=== PATIENT | female | born 1990 | race Caucasian/White ===

== ENCOUNTER 2019-07-17 11:00 | Outpatient (REF) | payer MEDICAID, SELFPAY | END 2019-07-17 11:20 | LOC: NCHCN 11:00 | PROVIDERS: PCP Physician Assistant Medical; Visit Provider Physician Assistant Medical | DX: N39.0 Urinary tract infection, site not specified (principal) | CPT/HCPCS: 87077; 87086; 87186 ==

== ENCOUNTER 2019-12-18 08:53 | Emergency (ER) | payer MEDICAID, SELFPAY ==
[2019-12-18 09:00] VITALS: BP 128/77; PULSE 92; RESP 18; TEMP 36.8; O2SAT 98
--- NOTE | 2019-12-18 09:15 | ED.GENADUL_ITS ---
Discharge Plan Disposition Patient Disposition: HOME Condition: Stable Discharge Details Chief Complaint: Sorethroat Clinical Impression: Acute streptococcal pharyngitis Primary Care Provider: Elizabeth Anguiano ED Provider: Africa Borjas Home Meds and New Rx's Prescriptions: New clindamycin HCl 300 mg capsule 300 mg PO TID 10 Days Qty: 30 RF: 0 Continued Mirena 1 EACH intrauterine device 1 ea Intrauterine DIRECTED RF: 0 ibuprofen 600 MG tablet 600 mg PO Q6H PRN PRNQty: 30 RF: 1 acetaminophen [Mapap Extra Strength] 500 MG tablet 500 mg PO Q6H PRN PRNQty: 30 RF: 1 ibuprofen 800 MG tablet 800 mg PO Q8H PRN (Reason: Pain) Qty: 15 RF: 0 Discharge Instructions Instructions: Pharyngitis (ED) Additional Instructions: Drink plenty of fluids and get plenty of rest. Take the antibiotics until finished. Alternate tylenol and motrin as needed and directed for pain. Follow-up with your primary care doctor in 1 week. Return to the emergency department with any worsening or new concerning symptoms. Discharge Data Discharge Physician: Africa Borjas Medical Decision Making 29-year-old female presents with sore throat since last night. She is afebrile and appears nontoxic. She has significant tonsillar edema, erythema, exudates but uvula midline without evidence of peritonsillar abscess. Tonsils not touching. No submandibular swelling, drooling or trismus. No obvious lymphadenopathy. Rapid strep positive. Patient has a history of allergy to sulfa and amoxicillin of which she is unsure of the reaction. Urine test negative. She was given a dose of Decadron p.o. to help with tonsillar edema and pain control. Prescription for clindamycin given. Advised to follow up with the primary care doctor for re-evaluation. Usual and customary return precautions given prior to discharge. Medical Records Medical records reviewed: Yes I reviewed the patient's medical records. HPI General Mode of arrival: ambulatory . Date/Time Provider Initiated Documentation: 12/18/19 09:10 . Limitations to Documentation: no limitations . Information obtained by: patient . HPI Narrative: Patient is a 29-year-old female presents the ED with a complaint of sore throat since last night. She states she has been working from home for the last several months. She states her kids return to daycare this week. She denies any known fever, ear pain, cough. Related Data Home Medications Medication Instructions Recorded Confirmed Saritha 1 ea INTRAUTERINE DIRECTED 09/13/15 12/18/19 acetaminophen [Mapap Extra 500 mg PO Q6H PRN PRN #30 tab 10/14/15 12/18/19 Strength] ibuprofen 600 mg PO Q6H PRN PRN #30 tablet 10/14/15 12/18/19 ibuprofen 800 mg PO Q8H PRN #15 tablet 02/18/17 12/18/19 clindamycin HCl 300 mg PO TID 10 Days #30 cap 12/18/19 Previous Rx's Medication Instructions Recorded acetaminophen [Mapap Extra 500 mg PO Q6H PRN PRN #30 tab 10/14/15 Strength] ibuprofen 600 mg PO Q6H PRN PRN #30 tablet 10/14/15 ibuprofen 800 mg PO Q8H PRN #15 tablet 02/18/17 clindamycin HCl 300 mg PO TID 10 Days #30 cap 12/18/19 Allergies Allergy/AdvReac Type Severity Reaction Status Date / Time Sulfa (Sulfonamide Allergy Severe HIVES, Unverified 12/18/19 09:05 Antibiotics) SWELLING, ITCHING amoxicillin Allergy Unknown ? WAS TOLD Unverified 12/18/19 09:05 @ PCP'S OFFICE General Stated Complaint: Sorethroat MERE: 4 Review of Systems All systems reviewed & are unremarkable except as noted in HPI and below Constitutional Constitutional: Reports as per HPI, Denies chills and Denies fever(s) Eyes Eyes: Denies blurry vision ENT Ears, Nose, Mouth, and Throat: Denies dizziness, Reports sore throat and Denies throat swelling Cardiovascular Cardiovascular: Denies chest pain and Denies dyspnea Respiratory Respiratory: Denies cough and Denies dyspnea Gastrointestinal Gastrointestinal: Denies abdominal pain, Denies diarrhea and Denies vomiting Genitourinary Genitourinary: Denies hematuria and Denies dysuria Musculoskeletal Musculoskeletal: Denies back pain and Denies numbness Integumentary/Breasts Skin/Breast: Denies lesions and Denies rash Neurologic Neurologic: Denies dizziness, Denies localized weakness and Denies numbness Allergic/Immunologic Allergic/Immunologic: Denies throat swelling [facility] Medical History (Updated 12/18/19 @ 09:31 by Africa Borjas DO) Elevated blood pressure Iron deficiency anemia Plantar fasciitis Surgical History (Updated 12/18/19 @ 09:25 by Africa Borjas DO) H/O wisdom tooth extraction (Acute) Hx of cholecystectomy (Chronic) Social History Smoking/Tobacco Use Status: Never Alcohol Intake: current Alcohol Intake frequency: a few times a month Drug use: Never Substance use type: does not use Do you feel safe at home: Yes Do you feel safe in your relationship?: Yes Exam Const General: cooperative, healthy appearing and no acute distress HENMT Head: normal to inspection Ears: hearing grossly normal bilaterally, external ears normal and TM's normal bilaterally General nose exam: external nose normal Mouth: oral mucosae normal Throat: uvula midline, no peritonsillar masses and posterior oropharynx abnormal edema, erythema and exudates Eyes General: appearance normal, both eyes and all related structures Neck Neck: normal visual inspection, no lymphadenopathy, no meningeal signs, trachea midline, supple and No submandibular swelling Resp Effort & Inspection: normal respiratory effort and able to speak in complete sentences Cardio Rate: regular rate Skin General skin exam: no rashes or lesions noted Neuro General: patient alert, patient awake and patient oriented x3 Motor: muscle tone normal throughout Extrem General: normal to inspection and full ROM Psych Appearance: grossly normal Affect: normal affect Course Vital Signs Vital signs: Vital Signs Temperature 98.2 F 12/18/19 09:00 Pulse 92 H 12/18/19 09:00 Respiratory Rate 18 12/18/19 09:00 Blood Pressure 128/77 12/18/19 09:00 Pulse Oximetry 98 12/18/19 09:00 Temperature 98.2 F 12/18/19 09:00 Temperature Source Oral 12/18/19 09:00 Pulse 92 H 12/18/19 09:00 Respiratory Rate 18 12/18/19 09:00 Respiratory Effort Non-Labored 12/18/19 09:03 Blood Pressure 128/77 12/18/19 09:00 Blood Pressure Position Sitting 12/18/19 09:00 Pulse Oximetry 98 12/18/19 09:00 Oxygen Delivery Method Room Air 12/18/19 09:00 Oxygen Flow Rate 0 12/18/19 09:00 Lab/Test Results Lab/Test Results: POC Strep Test-ARIANA(Rapid) Start: 12/18/19 09:13 Freq: Status: Active Protocol: Document 12/18/19 09:13 MJ (Rec: 12/18/19 09:13 [id number]) Strep test-ARIANA(Rapid)-POC POC-Strep test-ARIANA (Rapid) Positive POC-Strep test-ARIANA (Rapid) Positive
[2019-12-18] MEDS: Dexamethasone 10 MG/ML VIAL PO (09:34)
== END 2019-12-18 09:45 | disposition home or self-care (01) ==
PROVIDERS: Emergency Provider Physician Assistant; PCP Physician Assistant Medical
DX: J02.0 Streptococcal pharyngitis (principal)
CPT/HCPCS: 87880; 99283; J1100

== ENCOUNTER 2020-03-01 21:19 | Emergency (ER) | payer OTHER, MEDICAID, SELFPAY ==
[2020-03-01 21:24] VITALS: BP 108/85; PULSE 83; RESP 16; TEMP 36.5; O2SAT 98
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
== END 2020-03-01 22:15 | disposition home or self-care (01) ==
PROVIDERS: Emergency Provider Emergency Medicine; PCP Physician Assistant Medical
DX: S60.221A Contusion of right hand, initial encounter (principal); Y04.2XXA Assault by strike against or bumped into by another person, initial encounter; Y99.0 Civilian activity done for income or pay
CPT/HCPCS: 99283; 73130

== ENCOUNTER 2020-03-07 10:08 | Emergency (ER) | payer OTHER, MEDICAID, SELFPAY ==
[2020-03-07 10:13] VITALS: BP 153/86; PULSE 85; RESP 16; TEMP 36.5; O2SAT 96
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
== END 2020-03-07 11:00 | disposition home or self-care (01) ==
PROVIDERS: Emergency Provider Physician Assistant; PCP Physician Assistant Medical
DX: S60.221A Contusion of right hand, initial encounter (principal); Y04.2XXA Assault by strike against or bumped into by another person, initial encounter
CPT/HCPCS: 29130; 99283

== ENCOUNTER 2020-04-28 08:08 | Emergency (ER) | payer MEDICAID, SELFPAY ==
[2020-04-28 08:17] VITALS: BP 161/109; PULSE 87; RESP 16; TEMP 36.5; O2SAT 98
[2020-04-28 08:26] LABS: Bilirubin Negative (Negative); Blood Large (Negative); Clarity Clear (Clear); Glucose Negative (Negative); Ketones Negative (Negative); Leukocyte Esterase Moderate (Negative); Nitrite Negative (Negative); Specific Gravity >= 1.030 (1.005-1.025); Urobilinogen 0.2 EU/dL (Up TO 0.2); pH 5.5 (5-8)
--- NOTE | 2020-04-28 08:26 | ED.GENADUL_ITS ---
Discharge Plan Disposition Patient Disposition: HOME Condition: Stable Discharge Details Clinical Impression: Hematuria, UTI (urinary tract infection) Primary Care Provider: Elizabeth Anguiano ED Provider: Roman Kwan Home Meds and New Rx's Prescriptions: New nitrofurantoin monohyd/m-cryst [Macrobid] 100 mg capsule 100 mg PO BID Qty: 14 RF: 0 Continued Mirena 1 EACH intrauterine device 1 ea Intrauterine DIRECTED RF: 0 ibuprofen 600 MG tablet 600 mg PO Q6H PRN PRNQty: 30 RF: 1 acetaminophen [Mapap Extra Strength] 500 MG tablet 500 mg PO Q6H PRN PRNQty: 30 RF: 1 ibuprofen 800 MG tablet 800 mg PO Q8H PRN (Reason: Pain) Qty: 15 RF: 0 Discharge Instructions Instructions: Urinary Tract Infection in Women (ED), Hematuria (ED) Additional Instructions: As we discussed your symptoms are certainly consistent with an urinary tract infection but your urinalysis does show some contamination and is difficult to say with certainty that you truly have a urinary tract infection. Given your time constraints, we discussed options. We will at this time treat you presumptively for a urinary tract infection with the understanding that further work-up here in the ER such as laboratory values and CT imaging if needed was offered but at this time declined. Drink plenty of fluids, take [id number] Azo as directed. Macrobid as directed. Please watch for new or worsening symptoms and return to the ER for any concerns. Lastly, I do recommend reaching out your primary care provider later today or tomorrow for prompt outpatient reevaluation. Medical Decision Making 29-year-old female reports right flank pain hematuria, urinary frequency that began yesterday associate with mild nausea. 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 She is agreeable to obtaining a urine sample now and waiting for the results but does not want blood work or imaging. Clinically this very well could be a urinary tract infection. Clinically less likely a renal stone or pyelonephritis. She has no McBurney point tenderness, fever, vomiting, diarrhea, constipation, vaginal bleeding or discharge. Patient does understand the limitations that her time constraints provides here in the ER. Urinalysis reveals large blood moderate leukoesterase 10-20 red cells 5-10 white cells. Many epithelial cells. Moderate bacteria. Negative Urinalysis does reveal contamination however in her current state of symptoms, concern for UTI we discussed options and she would like to treat for UTI. I do believe this to be reasonable plan. I did explain to her that if time was not an issue I would recommend that she give us another urine sample to attempt a more clean-catch. If that test was normal and this in fact is not a urinary tract infection and I would then recommend IV access, laboratory values and reassessment. Based upon those laboratory values she may need CT imaging. Patient acknowledges that she understands limitations of her visit today, will provide her a prescription for Macrobid, and she was encouraged to return to the ER for new or worsening symptoms. Otherwise she will contact her primary care provider for prompt outpatient reevaluation. Medical Records Medical records reviewed: Yes I reviewed the patient's medical records. Lab Data Lab results reviewed: Yes I reviewed the patient's lab results. Lab results narrative: Laboratory Tests Range/Units 04/28/20 08:15 Urine Color (Yellow) Yellow Urine Clarity (Clear) Clear Urine pH (5-8) 5.5 Ur Specific [place] (1.005-1.025) >= 1.030 H Urine Protein (Negative) mg/dL Negative Urine Ketones (Negative) mg/dL Negative Urine Blood (Negative) Large H Urine Nitrite (Negative) Negative Urine Bilirubin (Negative) Negative Urine Urobilinogen (Up TO 0.2) EU/dL 0.2 Ur Leukocyte Esterase (Negative) Moderate H Urine RBC (0-2) HPF 10-20 H Urine WBC (0-5) HPF 5-10 Ur Epithelial Cells (Negative) HPF Many Urine Crystals (Negative) HPF Negative Urine Bacteria (Negative) HPF Moderate Urine Casts (Negative) LPF Negative Urine Mucus (Negative) Negative Ur Culture Indicated? No/sq. contamination Urine Glucose (Negative) mg/dL Negative HPI General Mode of arrival: ambulatory . Date/Time Provider Initiated Documentation: 04/28/20 08:26 . Limitations to Documentation: no limitations . Information obtained by: patient . HPI Narrative: This is a 29-year-old female who has a past medical history that includes elevated blood pressure, iron deficiency anemia, she reports a kidney infection, and is status post cholecystectomy. She does have a Mirena in place. She reports yesterday she developed right flank-back discomfort, nothing really made it worse or better. Subsequently she has developed mild nausea, urinary frequency and hematuria. She denies fever, chest pain, shortness of breath, vomiting, anterior abdominal pain, vaginal bleeding or discharge. Patient believes that she likely has a urinary tract infection or kidney infection, feels similar to her previous episode. Patient requests that she drop her urinalysis off now and we call her with her results and any potential prescription as she has an appointment to go to. I did encourage her to wait for her urine to come back here in the ER. She denies any other illness or recent trauma. Patient took [id number] medication yesterday with minimal relief. Related Data Home Medications Medication Instructions Recorded Confirmed Mirena 1 ea INTRAUTERINE DIRECTED 09/13/15 04/28/20 acetaminophen [Mapap Extra 500 mg PO Q6H PRN PRN #30 tab 10/14/15 04/28/20 Strength] ibuprofen 600 mg PO Q6H PRN PRN #30 tablet 10/14/15 04/28/20 ibuprofen 800 mg PO Q8H PRN #15 tablet 02/18/17 04/28/20 nitrofurantoin monohyd/m-cryst 100 mg PO BID #14 cap 04/28/20 [Macrobid] Previous Rx's Medication Instructions Recorded acetaminophen [Mapap Extra 500 mg PO Q6H PRN PRN #30 tab 10/14/15 Strength] ibuprofen 600 mg PO Q6H PRN PRN #30 tablet 10/14/15 ibuprofen 800 mg PO Q8H PRN #15 tablet 02/18/17 nitrofurantoin monohyd/m-cryst 100 mg PO BID #14 cap 04/28/20 [Macrobid] Allergies Allergy/AdvReac Type Severity Reaction Status Date / Time Sulfa (Sulfonamide Allergy Severe HIVES, Unverified 04/28/20 08:22 Antibiotics) SWELLING, ITCHING amoxicillin Allergy Unknown ? WAS TOLD Unverified 04/28/20 08:22 @ PCP'S OFFICE General Stated Complaint: FlankPain MERE: 3 Review of Systems Constitutional Constitutional: Denies fever(s) Cardiovascular Cardiovascular: Denies chest pain and Denies dyspnea Respiratory Respiratory: Denies cough and Denies dyspnea Gastrointestinal Gastrointestinal: Reports abdominal pain (Right flank), Reports nausea and Denies vomiting Genitourinary Genitourinary: Denies abnormal vaginal bleeding, Reports hematuria, Reports urinary urgency and Denies vaginal discharge Musculoskeletal Musculoskeletal: Reports back pain Integumentary/Breasts Skin/Breast: Denies rash [facility] Medical History Elevated blood pressure Iron deficiency anemia Plantar fasciitis Surgical History H/O wisdom tooth extraction Hx of cholecystectomy Social History Smoking/Tobacco Use Status: Never Smoking risk assessment performed?: Yes Alcohol Intake: current Alcohol Intake frequency: a few times a month Drug use: Never Substance use type: does not use Do you feel safe at home: Yes Do you feel safe in your relationship?: Yes Exam Const General: cooperative, healthy appearing, comfortable and no acute distress Orientation: alert and awake HENMT Head: normal to inspection, normocephalic and atraumatic Eyes Conjunctivae: conjunctivae normal Sclera: sclerae normal Neck Neck: normal visual inspection, full ROM, trachea midline and supple Resp Effort & Inspection: normal respiratory effort and able to speak in complete sentences Auscultation: clear to auscultation bilaterally Cardio Rate: regular rate Rhythm: regular rhythm GI Inspection: normal to inspection and obesity Palpation: soft, not firm, no guarding and tender (Mild right flank to deep palpation) with no rebound tenderness Back/Spine/Pelvis Back: no CVA tenderness and No back tenderness Skin General skin exam: no rashes or lesions noted Neuro General: patient alert, patient awake, moves all extremities and no focal motor deficits Cognition: normal cognition Gait: normal gait Sensory Exam: no sensory deficits noted Psych Appearance: grossly normal Mental Status: mental status grossly normal Course Vital Signs Vital signs: Vital Signs Temperature 36.5 C 04/28/20 08:17 Pulse 87 04/28/20 08:17 Respiratory Rate 16 04/28/20 08:17 Blood Pressure 161/109 H 04/28/20 08:17 Pulse Oximetry 98 04/28/20 08:17 Temperature 36.5 C 04/28/20 08:17 Pulse 87 04/28/20 08:17 Respiratory Rate 16 04/28/20 08:17 Respiratory Effort 04/28/20 08:17 Blood Pressure 161/109 H 04/28/20 08:17 Blood Pressure Position Sitting 04/28/20 08:17 Pulse Oximetry 98 04/28/20 08:17 Pain Level 6 04/28/20 08:17
[2020-04-28 08:41] LABS: Bacteria Moderate HPF (Negative); Casts Negative LPF (Negative); Crystals Negative HPF (Negative); Epithelial Cells Many HPF (Negative); Mucus Negative (Negative)
[2020-04-28 08:42] LABS: C & S Indicated? No/Sq. Contamination
== END 2020-04-28 08:52 | disposition home or self-care (01) ==
PROVIDERS: Emergency Provider Physician Assistant; PCP Physician Assistant Medical
DX: N39.0 Urinary tract infection, site not specified (principal); R31.9 Hematuria, unspecified; R10.11 Right upper quadrant pain; R11.0 Nausea; Z53.29 Procedure and treatment not carried out because of patient's decision for other reasons
CPT/HCPCS: 81025; 99283; 81003; 81015

== ENCOUNTER 2020-11-15 08:05 | Emergency (ER) | payer MEDICAID, SELFPAY ==
[2020-11-15 08:08] VITALS: PULSE 88; RESP 16; TEMP 36.5; O2SAT 98
--- NOTE | 2020-11-15 08:09 | W.ED.GENAD ---
Discharge Plan Disposition Patient Disposition: HOME Condition: Stable Discharge Details Clinical Impression: Allergic reaction Primary Care Provider: Elizabeth Anguiano ED Provider: Africa Borjas Home Meds and New Rx's Prescriptions: New prednisone 20 mg tablet See Rx Instructions .ROUTE .COMPLEX Qty: 12 RF: 0 Continued Mirena 1 EACH intrauterine device 1 ea Intrauterine DIRECTED RF: 0 acetaminophen [Mapap Extra Strength] 500 MG tablet 500 mg PO Q6H PRN PRNQty: 30 RF: 1 loratadine [Claritin] 10 mg Tablet 10 mg PO DAILY PRNRF: 0 Discharge Instructions Instructions: General Allergic Reaction (ED) Additional Instructions: It seems most likely your allergic reaction is due to the eyelid extensions. Avoid eye make-up until symptoms resolved. Your prescription has been sent electronically to your pharmacy. Call the pharmacy to make sure your prescription is ready before pickup. Take the prescription as directed. You can continue taking the Claritin and antihistamine eyedrops as needed and directed for itching. You can apply the erythromycin ointment 1-2 times daily to your eyelids for the next couple days. This is an antibiotic ointment. Follow-up with [facility] in the next week. Return immediately to the emergency department if you develop any worsening or new concerning symptoms. Referrals: [facility] [Outside] Discharge Data Discharge Physician: Africa Borjas Medical Decision Making 29-year-old female presents with eyelid pruritus and edema after having eyelid extensions applied. Admits to similar reaction 2 weeks ago and then a more pronounced reaction after they were reapplied 2 days ago. She removed all the extensions herself this morning. Symptoms are somewhat improved. She has edema and erythema to her upper eyelids greater than her lower eyelids but no obvious evidence of periorbital or orbital cellulitis. She has no yellow crusting or discharge. EOMI. PERRLA. Patient denies any eye pain and does not feel that she needs fluorescein staining to rule out corneal abrasion. Tetanus up-to-date 2014. Urine test negative. Discussed with patient that it appears she is most likely having a delayed hypersensitivity reaction to the eyelid extensions. Will treat with oral steroids. We will also give erythromycin ointment to help with erythema and irritation at the lid edge and for lubrication. She is advised that she can continue her antihistamine eyedrops and Claritin as needed. Advised to hold off on any eye make-up until symptoms resolved. Advised to [facility] with [facility] for reevaluation. Usual and customary return precautions given prior to discharge. Medical Records Medical records reviewed: Yes I reviewed the patient's medical records. HPI General Mode of arrival: ambulatory. Date/Time Provider Initiated Documentation: 11/15/20 08:08. Limitations to Documentation: no limitations. Information obtained by: patient. HPI Narrative: Patient is a 29-year-old female presents with itching and swelling to her bilateral eyelids after she had eyelid extensions placed. Patient states she has been having eyelid extensions applied to her eyes over the past 6 months. She states 2 weeks ago 1 day after the the extension were replaced, she noted bilateral eyelid swelling and itching. She states she also had some nasal congestion and throat irritation so she thought this was seasonal allergies after weed whacking so she took Claritin and use antihistamine eyedrops and the symptoms somewhat improved. She states she had the eyelid extensions replaced 2 days ago and awoke this morning with severe eyelid swelling and itching. She states she was able to take all of the eyelid extensions off this morning with using an oral face wash. She states the symptoms have somewhat improved since removing them but still has some swelling and itching. She denies any foreign body to her eye or eye pain. She denies any yellow crusting or discharge. She denies any difficulty breathing. Related Data Home Medications Medication Instructions Recorded Confirmed Mirena 1 ea INTRAUTERINE DIRECTED 09/13/15 11/15/20 acetaminophen [Mapap Extra 500 mg PO Q6H PRN PRN #30 tab 10/14/15 11/15/20 Strength] loratadine [Claritin] 10 mg PO DAILY PRN 11/15/20 11/15/20 prednisone See Rx Instructions .ROUTE 11/15/20 .COMPLEX #12 tab Previous Rx's Medication Instructions Recorded acetaminophen [Mapap Extra 500 mg PO Q6H PRN PRN #30 tab 10/14/15 Strength] prednisone See Rx Instructions .ROUTE 11/15/20 .COMPLEX #12 tab Allergies Allergy/AdvReac Type Severity Reaction Status Date / Time Sulfa (Sulfonamide Allergy Severe HIVES, Unverified 11/15/20 08:17 Antibiotics) SWELLING, ITCHING amoxicillin Allergy Unknown ? WAS TOLD Unverified 11/15/20 08:17 @ PCP'S OFFICE General MERE: 3 Review of Systems All systems reviewed & are unremarkable except as noted in HPI and below Constitutional Constitutional: Reports as per HPI, Denies chills and Denies fever(s) Eyes Eyes: Denies blurry vision, Reports irritation and Reports itchy eyes ENT Ears, Nose, Mouth, and Throat: Denies dizziness, Denies sore throat and Denies throat swelling Cardiovascular Cardiovascular: Denies chest pain and Denies dyspnea Respiratory Respiratory: Denies cough and Denies dyspnea Gastrointestinal Gastrointestinal: Denies abdominal pain, Denies diarrhea and Denies vomiting Genitourinary Genitourinary: Denies hematuria and Denies dysuria Musculoskeletal Musculoskeletal: Denies back pain and Denies numbness Integumentary/Breasts Skin/Breast: Denies lesions and Denies rash Neurologic Neurologic: Denies dizziness, Denies localized weakness and Denies numbness Allergic/Immunologic Allergic/Immunologic: Reports itchy eyes and Denies throat swelling PFSH Medical History Elevated blood pressure Iron deficiency anemia Plantar fasciitis Surgical History H/O wisdom tooth extraction Hx of cholecystectomy Social History Smoking/Tobacco Use Status: Never Smoking risk assessment performed?: Yes Alcohol Intake: current Alcohol Intake frequency: a few times a month Drug use: Never Substance use type: does not use Do you feel safe at home: Yes Do you feel safe in your relationship?: Yes Exam Const General: cooperative, healthy appearing and no acute distress [facility] Head: normal to inspection Ears: hearing grossly normal bilaterally, external ears normal and TM's normal bilaterally General nose exam: external nose normal Mouth: oral mucosae normal Throat: posterior oropharynx normal Eyes General: appearance normal, both eyes and all related structures Periorbital: periorbital findings normal Conjunctivae: conjunctivae normal Sclera: sclerae normal Pupils: PERRL EOM: EOM intact bilaterally Other: Moderate edema and erythema to upper eyelid, mild edema and erythema to lower eyelid. No yellow discharge, crusting, abrasions noted. No significant conjunctival abnormality. There is no obvious foreign body noted with bilateral eyelid eversion. Neck Neck: normal visual inspection, no lymphadenopathy, no meningeal signs, trachea midline, supple and No submandibular swelling Resp Effort & Inspection: normal respiratory effort and able to speak in complete sentences Cardio Rate: regular rate Skin General skin exam: no rashes or lesions noted Neuro General: patient alert, patient awake and patient oriented x3 Motor: muscle tone normal throughout Extrem General: normal to inspection and full ROM Psych Appearance: grossly normal Affect: normal affect
[2020-11-15] MEDS: predniSONE 20 MG TAB 60 MG PO (08:42)
[2020-11-15] MEDS: Erythromycin Ophth Oint 3.5 GM TUBE OU (08:42)
== END 2020-11-15 09:05 | disposition home or self-care (01) ==
PROVIDERS: Emergency Provider Physician Assistant; PCP Physician Assistant Medical
DX: T78.49XA Other allergy, initial encounter (principal); X58.XXXA Exposure to other specified factors, initial encounter
CPT/HCPCS: 81025; 99283; J7512

== ENCOUNTER 2023-07-19 14:00 | Outpatient (REF) | payer MEDICAID, SELFPAY ==
--- OUTSIDE RECORDS SUMMARY | 2023-07-19 14:04 | XMS_ITS | Patient Health Record ---
Author Name Unknown [facility] Address [address] [place] [address] Care Team Providers Care Plant Taxonomy Teacher Name Role Phone DAVID SHELDON PA-C Primary Care Provider Swathi vailable Sravanthi Whitney Unavailable [phone] REASON FOR REFERRAL No Information SOCIAL HISTORY Tobacco Use: Social History Observation Description Date Smoking Status WARNING: Information temporarily unavailable Sex Assigned At : Social History Observation Description Sex Assigned At Unknown SMOKING Question Answer Notes Are you a: nonsmoker PLAN OF TREATMENT No Information Insurance Providers Payer Name Payer Address Payer Phone Subscriber Number Group Number Insured Name Patient Relationship to Insured Coverage Start Date Coverage End Date [employer] Freddy RAMIREZ [id number] ANETA STEPHENSON Self - patient is the insured MEDICAID [place], [place] [id number] ANETA STEPHENSON Self - patient is the insured [place] [address] [id number] ANETA STEPHENSON Self - patient is the insured MEDICAL (GENERAL) HISTORY Surgical History Surgery Date(Month/Year)
[2023-07-19 20:31] LABS: Abs Immature Grans 0.09 10^3/uL (0.0-0.06); Absolute Basophil Count 0.04 10^3/uL (0.0-0.2); Absolute Eosinophil Count 0.08 10^3/uL (0.0-0.7); Absolute Lymphocyte Count 2.74 10^3/uL (1.2-3.4); Absolute Monocyte Count 0.69 10^3/uL (0.1-0.8); Absolute Neutrophil Count 6.95 10^3/uL (1.2-6.7); Basophils % 0.4; Eosinophils % 0.8; HCT 39.6 % (36.0-46.0); HGB 13.2 g/dL (11.2-15.7); Immature Grans % 0.8; Lymphocytes % 25.9; MCH 27.1 pg (27.0-33.0); MCHC 33.3 % (32.0-36.0); MCV 81 fL (80-95); MPV 9.6 fL (8.0-11.0); Monocytes % 6.5; Neutrophils % 65.6; Platelet Count 321 10^3/uL (130-400); RBC 4.87 10^6/uL (3.93-5.22); RDW 13.2 % (11.7-14.6); RDW-SD 38.6 fL; WBC 10.59 10^3/uL (4.4-10.8)
[2023-07-19 20:40] LABS: ALT 40 U/L (14-59); AST 23 U/L (15-37); Albumin 3.5 g/dL (3.4-5.0); Alkaline Phosphatase 81 U/L (46-116); Anion Gap 6.8 mmol/L (3-11); BUN 16 mg/dL (7-18); Bilirubin, Total 0.2 mg/dL (0.2-1.0); CO2 28.2 mmol/L (21.0-32.0); CREATININE 0.9 mg/dL (0.55-1.02); Calcium 9.3 mg/dL (8.5-10.1); Calculated LDL 123 mg/dL (<100); Chloride 104 mmol/L (98-107); Cholesterol 213 mg/dL (<200); Estimated GFR 86.57 (mL/min/1.73m2); Glucose 106 mg/dL (74-106); HDL Cholesterol 39 mg/dL (40-60); Hemoglobin A1C 5.9 % (<5.7); Potassium 4.2 mmol/L (3.5-5.1); Sodium 139 mmol/L (136-145); Total Protein 7.7 g/dL (6.4-8.2); Triglyceride 257 mg/dL (<150)
== END 2023-07-19 14:01 | disposition home or self-care (01) ==
LOC: NCHCN 14:00
PROVIDERS: PCP Physician Assistant Medical; Visit Provider Physician Assistant Medical
DX: I10 Essential (primary) hypertension (principal); K76.0 Fatty (change of) liver, not elsewhere classified; R73.09 Other abnormal glucose; E66.8 Other obesity
CPT/HCPCS: 80053; 80061; 83036; 85025

== ENCOUNTER 2024-04-09 11:25 | Emergency (ER) | payer OTHER, SELFPAY ==
[2024-04-09 11:29] VITALS: BP 120/75; PULSE 115; RESP 120; TEMP 36.6; O2SAT 94
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
--- OUTSIDE RECORDS SUMMARY | 2024-04-09 12:36 | XMS_ITS | Referral Summary ---
Author Organization [facility] Address [address] [place] [address] Care Team Providers Care Assistant Winemaker Name Role Phone Ariel Peña PA-C Primary Care Provider [phone] Social History Tobacco Use Types Packs/Day Years Used Date Smoking Tobacco: Never Assessed Interpersonal Safety Answer Date Record ed Physically Hurt Never 01/19/2020 Verbally Threaten Not on file 01/19/2020 Sex and Gender Information Value Date Recorded Sex Assigned at Not on file Gender Identity Not on file Sexual Orientation Not on file Plan of Treatment Not on file Care Teams Assistant Winemaker Relationship Specialty Start Date End Date Ariel Peña PA-C PCP - General 10/19/15
--- OUTSIDE RECORDS SUMMARY | 2024-04-09 12:36 | XMS_ITS | Clinical Summary ---
Author Organization [facility] Address [facility] [place] [address] Care Team Providers Care Human Resource Adviser Name Role Phone Elizabeth Anguiano Primary Care Provider [phone]- [phone] Allergies Active Allergy Reactions Criticality Noted Date Comments Amoxicillin 12/01/2020 Sulfa (Sulfonamide Antibiotics) 11/17 Medications Medication Sig Dispensed Refills Start Date End Date Status ibuprofen (Advil) 200 mg Tablet Take 200 mg by mouth every 6 hours as needed for Pain. Active acetaminophen (Tylenol) 500 mg Tablet Take 1,000 mg by mouth every 6 hours as needed for Pain. Active Active Problems Problem Noted Date Diagnosed Date Hx of cholecystectomy 12/22/2020 Allergic reaction 12/22/2020 Carpal tunnel syndrome on right 12/01/2020 Immunizations Name Administration Dates Next Due Tdap (Adacel, Boostrix) 03/03/2015 Social History Tobacco Use Types Packs/Day Years Used Date Smoking Tobacco: Never Smokeless Tobacco: Never Sex and Gender Information Value Date Recorded Sex Assigned at Not on file Gender Identity Not on file Sexual Orientation Not on file Plan of Treatment Health Maintenance Due Date Last Done Comments HIV screen 11/30/2007 Hepatitis C Screening 11/30/2007 Hepatitis B vaccine (0-59 yrs) (1) 2008 HPV test 11/30/2019 PAP Smear 11/30/2019 Covid-19 Vaccine ( - 2022-24 season) 2024 Influenza (Flu) vaccine (1 o f 1 - Influenza standard series) 02/18/2024 Tetanus/Diphtheria/Pertussis Vaccines (2 - Td or Tdap) 03/03/2025 03/03/2015 Care Teams Human Resource Adviser Relationship Specialty Start Date End Date Elizabeth Anguiano PA [address] [place] [address] PCP - General Family Medicine 11/25/20
--- OUTSIDE RECORDS SUMMARY | 2024-04-09 12:36 | XMS_ITS | Clinical Summary ---
Author Organization [facility] Address [address] [place] [address] Care Team Providers Care Stranding Supervisor Name Role Phone Ariel Peña PA-C Primary Care Provider [phone] Social History Tobacco Use Types Packs/Day Years Used Date Smoking Tobacco: Never Assessed Interpersonal Safety Answer Date Record ed Physically Hurt Never 01/19/2020 Verbally Threaten Not on file 01/19/2020 Sex and Gender Information Value Date Recorded Sex Assigned at Not on file Gender Identity Not on file Sexual Orientation Not on file Plan of Treatment Health Maintenance Due Date Last Done Comments Hepatitis C Screen 1989 Hepatitis B Vaccine (1 of 3 - 19+ 3-dose series) 11/29 COVID-19 Vaccine ( season) 2023 Care Teams Stranding Supervisor Relationship Specialty Start Date End Date Ariel Peña PA-C PCP - General 10/19/15
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
--- OUTSIDE RECORDS SUMMARY | 2024-04-09 12:36 | XMS_ITS | Encounter Summary ---
Author Organization [facility] [place] [address] Care Team Providers Care News Cameraman Name Role Phone Elizabeth Anguiano Primary Care Provider [phone]- [phone] Encounter Details Date Type Department Care Team (Late st Contact Info) Description 12/01/2020 Abstract Surgical Specialties at [facility] [address] [place] [address] Chetna Pagan[facility] Social History Tobacco Use Types Packs/Day Years Used Date Smoking Tobacco: Never Smokeless Tobacco: Never Sex and Gender Information Value Date Recorded Sex Assigned at Not on file Gender Identity Not on file Sexual Orientation Not on file documented as of this encounter Plan of Treatment Not on file documented as of this encounter Visit Diagnoses Not on filedocumented in this encounter Care Teams News Cameraman Relationship Specialty Start Date End Date Elizabeth Anguiano PA [address] [place] [address] PCP - General Family Medicine 11/25/20 documented as of this encounter
--- OUTSIDE RECORDS SUMMARY | 2024-04-09 12:36 | XMS_ITS | Encounter Summary ---
Author Organization [facility] Address [address] [place] [address] Care Team Providers Care Squeegee Tender Name Role Phone Unknown, Provider Primary Care Provider Encounter Details Date Type Department Care Team (Latest Contact Info) Description 10/14/2015 9:16 EDT - 10/14/2015 23:59 EDT Hospital Encounter [address] [address] Unknown, Provider, Discharge Disposition: Home or Self Care Social History Tobacco Use Types Packs/Day Years Used Date Smoking Tobacco: Never Assessed Sex and Gender Information Value Date Recorded Sex Assigned at Not on file Gender Identity Not on file Sexual Orientation Not on file documented as of this encounter Discharge Disposition Disposition Code Departure Means Destination Home or Self Group Home documented in this encounter Plan of Treatment Not on file documented as of this encounter Visit Diagnoses Not on filedocumented in this encounter Care Teams Squeegee Tender Relationship Specialty Start Date End Date Unknown, Provider, PCP - General 06/30/11 10/18/15 documented as of this encounter
--- OUTSIDE RECORDS SUMMARY | 2024-04-09 12:36 | XMS_ITS | Encounter Summary ---
Author Organization [facility] Address [address] [place] [address] Care Team Providers Care Digital Media Buyer Name Role Phone Ariel Peña PA-C Primary Care Provider [phone] Encounter Details Date Type Department Care Team (Latest Contact Info) Description 07/05/2017 19:41 EST - 07/05/2017 23:59 EST Hospital Encounter [address] [address] Unknown, Provider, Discharge Disposition: Home or Self [...] on filedocumented in this encounter Care Teams Digital Media Buyer Relationship Specialty Start Date End Date Ariel Peña PA-C PCP - General 10/19/15 documented as of this encounter
--- OUTSIDE RECORDS SUMMARY | 2024-04-09 12:36 | XMS_ITS | Encounter Summary ---
Author Organization [facility] Address [address] [place] [address] Care Team Providers Care Venue Coordinator Name Role Phone Unknown, Provider Primary Care Provider [phone] Encounter Details Date Type Department Care Team (Late st Contact Info) Description 11/14/2014 Results Only [facility] [phone] Obi Mcclendon [address] [place], [place] [id number] Social History Tobacco Use Types Packs/Day Years Used Date Smoking Tobacco: Never Assessed Sex and Gender Information Value Date Recorded Sex Assigned at Not on file Gender Identity Not on file Sexual Orientation Not on file documented as of this encounter Plan of Treatment Not on file documented as of this encounter Procedures Procedure Name Priority Date/Time Associated Diagnosis Comments PAP TEST- RESULT ONLY Routine 11/14/2014 0:00 EDT documented in this encounter Results * PAP TEST- RESULT ONLY (11/14/2014 0:00 EDT) Pathology Report: CYTOPATHOLOGY REPORT Reports generated via electronic interface contain original data; however they are lacking the format of the original report. Caution should be taken when reading/interpreti ng unformatted reports. Name: ? ESTELLE AGUIRRE ? Accession #: ? [id number] : ? 1990 (Age: 23) ??F ?Collect Date: ? 11/14/2014 Location: ? [facility] ? Receive Date: ? 11/17/2014 Provider: ?OBI MCCLENDON CNM Copy to: ? Specimen/Source: ?Pap Test, Cervix/Endocervix, ThinPrep Imaging System with manual evaluation Last Menstrual Period: ? 09/15/14 Menstrual/Pregnanc y Status: ? SPECIMEN ADEQUACY ? Satisfactory for Evaluation - transformation zone component present - scant squamous epithelial component GENERAL CATEGORIZATION ? Negative for Intraepithelial Lesion or Malignancy ? Document reviewed and electronically signed by: ? TRACE Soriano(ASCP) ? Report Date: ??11/24/2014 10:05 End of Report [facility] 11/14/2014 11/17/2014 Obi Mcclendon CNM PATHOLOGY ORDERABLES Performing Organization Address City/State/[facility] Co de Phone Number [facility] [address] [place] [address] documented in this encounter Visit Diagnoses Not on filedocumented in this encounter Care Teams Venue Coordinator Relationship Specialty Start Date End Date Unknown, Provider, PCP - General 06/30/11 10/18/15 documented as of this encounter
--- OUTSIDE RECORDS SUMMARY | 2024-04-09 12:36 | XMS_ITS | Encounter Summary ---
Author Organization [facility] Address [address] [place] [address] Care Team Providers Care Womens Volleyball Coach Name Role Phone Unknown, Provider Primary Care Provider [phone] Encounter Details Date Type Department Care Team (Late st Contact Info) Description 10/14/2015 Results Only [facility] [phone] Blank Pacheco MD [address] [place] [address] [address] [place], [place] [id number] Social History Tobacco Use Types Packs/Day Years Used Date Smoking Tobacco: Never Assessed Sex and Gender Information Value Date Recorded Sex Assigned at Not on file Gender Identity Not on file Sexual Orientation Not on file documented as of this encounter Plan of Treatment Not on file documented as of this encounter Procedures Procedure Name Priority Date/Time Associated Diagnosis Comments SURGICAL PATHOLOGY Routine 10/14/2015 20 :01 EDT documented in this encounter Results * SURGICAL PATHOLOGY (10/14/2015 20:01 EDT) Pathology Report: SURGICAL PATHOLOGY REPORT Reports generated via electronic interface contain original data; however they are lacking the format of the original report. Caution should be taken when reading/interpret ing unformatted reports. Name: ? ESTELLE AGUIRRE ? Accession #: ? [id number] ? : ? 1990 (Age: 24) ??F ? Collect Date: ? 10/14/2015 ? Location: ? [facility] ? Receive Date: ? 10/14/2015 ? Provider: BLANK PACHECO MD Copy to: TERA AHN PAC ? Final Pathologic Diagnosis: Gallbladder, cholecystectomy: - ??Chronic cholecystitis with cholesterolosis. - ??Cholelithiasis. Document reviewed and electronically signed by: CÉSAR GUTIERREZ MD Report ??Date: 10/19/2015 10:28 By the signature above, the attending physician certifies that he/she has personally conducted a gross and/or microscopic examination of the described specimens and rendered or confirmed the above diagnosis. Specimen(s) Received: Gallbladder and contents Clinical History: Cholelithiasis; cholecystitis Gross Description: ? Received in formalin labelled with proper patient identification (initials F, B) and gallbladder is an intact 7.5 x 3.8 x 3.0 cm gallbladder with a 0.5 cm in length cystic duct. The serosa is glistening and green-blue. The gallbladder lumen contains slightly viscous bile admixed with several mulberry calculi, ranging from 0.1 cm to 0.3 cm in diameter. The mucosa is velvety green and shows a few cholesterol polyps, measuring up to 0.3 cm in diameter. The wall is without areas of induration, averaging 0.3 cm in thickness. Employment Specialist sections are submitted in 1. Marjan Negro 10/15/2015 3:[address] [facility] 10/14/2015 20:0 1 EDT 10/14/2015 20:01 EDT Blank Pacheco MD PATHOLOGY GEM [facility] [address] [place] [address] documented in this encounter Visit Diagnoses Not on filedocumented in this encounter Care Teams Womens Volleyball Coach Relationship Specialty Start Date End Date Unknown, Provider, PCP - General 06/30/11 10/18/15 documented as of this encounter
--- OUTSIDE RECORDS SUMMARY | 2024-04-09 12:36 | XMS_ITS | Encounter Summary ---
Author Organization [facility] Address [address] [place] [address] Care Team Providers Care Rock Crusher Name Role Phone Tera Ahn PA-C Primary Care Provider [phone] Encounter Details Date Type Department Care Team (Late st Contact Info) Description 07/05/2017 Results Only [facility] [phone] Michael Klein MD [address] [place] [phone] Social History Tobacco Use Types Packs/Day Years Used Date Smoking Tobacco: Never Assessed Sex and Gender Information Value Date Recorded Sex Assigned at Not on file Gender Identity Not on file Sexual Orientation Not on file documented as of this encounter Plan of Treatment Not on file documented as of this encounter Procedures Procedure Name Priority Date/Time Associated Diagnosis Comments SURGICAL PATHOLOGY Routine 07/05/2017 17 :30 EST documented in this encounter Results * SURGICAL PATHOLOGY (07/05/2017 17:30 EST) Pathology Report: SURGICAL PATHOLOGY REPORT Reports generated via electronic interface contain original data; however they are lacking the format of the original report. Caution should be taken when reading/interpreting unformatted reports. Name: ? ESTELLE AGUIRRE Hector ? Accession #: ? [id number] ? : ? 1990 (Age: 26) ??F ? Collect Date: ? 07/05/2017 ? Location: ? [facility] ? Receive Date: ? 07/06/2017 ? Provider: MICHAEL KLEIN MD Copy to: TERA AHN PAC ? Final Pathologic Diagnosis: SKIN OF NASAL VESTIBULE/COLUMELLA, RIGHT, BIOPSY: - Verruca vulgaris. ?? Microscopic Description: The stratum corneum is thickened by compact orthohyperkeratosis with tiers of parakeratosis and foci of hemorrhage. ??The epidermis is hyperplastic with papillomatosis and acanthosis. The acanthotic rete ridges have an inward-bending configuration. The superficial keratinocytes have perinuclear vacuoles. The granular layer is accentuated. (Dr. Gates)/jds ?? Document reviewed and electronically signed by: KARLENE GATES MD Report ??Date: 07/07/2017 15:23 By the signature above, the attending physician certifies that he/she has personally conducted a gross and/or microscopic examination of the described specimens and rendered or confirmed the above diagnosis. Specimen(s) Received: Right nasal vestibule columellar mass Clinical History: Right nasal vestibule columellar lesion, hx digital warts; clinical diagnosis code: R22.0 Gross Description: ? Received in formalin labelled with proper patient identification (initials F, B) and right nasal vestibule columellar mass is a shave biopsy of a elizabeth-white finely papillary nodule (0.5 x 0.3 x 0.2 cm). The margin is inked blue. The specimen is bisected and entirely submitted in 1. ASHLEY Blake (ASCP) 07/07/2017 8:00 AM End of Report [facility] 07/05/2017 17:3 0 EST 07/06/2017 17:30 EST Michael Klein MD PATHOLOGY ORDERABLES [facility] [address] [place] [address] documented in this encounter Visit Diagnoses Not on filedocumented in this encounter Care Teams Rock Crusher Relationship Specialty Start Date End Date Tera Ahn PA-C PCP - General 10/19/15 documented as of this encounter
--- OUTSIDE RECORDS SUMMARY | 2024-04-09 12:37 | XMS_ITS | Patient Health Record ---
Author Organization [facility] Address [address] [place] [address] Care Team Providers Care Plaster Lather Name Role Phone DAVID SHELDON PA-C Primary Care Provider Swathi selinailaSravanthi Henriquez Unavailable REASON FOR REFERRAL No Information PLAN OF TREATMENT No Information Insurance Providers Payer Name Payer Address Payer Phone Subscriber Number Group Number Insured Name Patient Relationship to Insured Coverage Start Date Coverage End Date [employer] Freddy RAMIREZ [id number] ANETA STEPHENSON Self - patient is the insured MEDICAID [place], [place] [id number] ANETA STEPHENSON Self - patient is the insured [place] [id number] ANETA STEPHENSON Self - patient is the insured MEDICAL (GENERAL) HISTORY Surgical History Surgery Date(Month/Year)
--- OUTSIDE RECORDS SUMMARY | 2024-04-09 12:37 | XMS_ITS | Encounter Summary ---
Author Organization [facility] Address [address] [place] [address] Care Team Providers Care Core Stacker Name Role Phone Unknown, Provider Primary Care Provider Encounter Details Date Type Department Care Team (Late st Contact Info) Description 06/29/2011 Results Only [facility] ([facility] [address], [place] [address] [place] [address] Social History Tobacco Use Types Packs/Day Years [...] Diagnosis Comments PAP TEST- RESULT ONLY Routine 06/29/2011 0:00 EST documented in this encounter Results * PAP TEST- RESULT ONLY (06/29/2011 0:00 EST) Pathology Report: CYTOPATHOLOGY REPORT Reports generated via electronic interface contain original data; however they are lacking the format of the original report. Caution should be taken when reading/interpreti ng unformatted reports. Name: ? CHESTER ESTELLE Young ? Accession #: ? [id number] : ? 1990 (Age: 20) ??F ?Collect Date: ? 06/29/2011 Location: ? [facility] ? Receive Date: ? 06/30/2011 Provider: ?ALEXANDRA STODDARD SANTOM Copy to: ? Specimen/Source: ?Pap Test, Cervix/Endocervix, ThinPrep Imaging System with manual evaluation Last Menstrual Period: ? 05/03/2011 Menstrual/Pregnanc y Status: ? SPECIMEN ADEQUACY ? Satisfactory for Evaluation - transformation zone component present GENERAL CATEGORIZATION ? Negative for Intraepithelial Lesion or Malignancy INTERPRETATION ? Reactive cellular changes associated with inflammation present (includes repair). Shift in milan present suggestive of bacterial vaginosis. ? Document reviewed and electronically signed by: ? FITO ESPARZA [facility] ? Report Date: ??07/06/2011 16:06 End of Report MICHELA GALLOWAY 06/29/2011 06/30/2011 Alexandra Stoddard CNM PATHOLOGY ORDERABLES Performing Organization Address City/State/[facility] Co de Phone Number MICHEAL GALLOWAY [address] [place] [address] documented in this encounter Visit Diagnoses Not on filedocumented in this encounter Care Teams Core Stacker Relationship Specialty Start Date End Date Unknown, Provider, PCP - General 06/30/11 10/18/15 documented as of this encounter
[2024-04-09] MEDS: Ibuprofen 600 MG TAB PO (12:56)
[2024-04-09] MEDS: Acetaminophen 500 MG TAB 1000 MG PO (12:56)
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
== END 2024-04-09 13:24 | disposition home or self-care (01) ==
PROVIDERS: Emergency Provider Physician Assistant; PCP Physician Assistant Medical
DX: S76.312A Strain of muscle, fascia and tendon of the posterior muscle group at thigh level, left thigh, initial encounter (principal); W19.XXXA Unspecified fall, initial encounter; Y99.0 Civilian activity done for income or pay
CPT/HCPCS: 81025; 99282; 99283

== ENCOUNTER 2024-08-05 12:39 | Outpatient (REF) | payer BC, SELFPAY ==
[2024-08-05 15:43] LABS: Absolute Basophil Count 0.03 10^3/uL (0.0-0.2); Absolute Eosinophil Count 0.13 10^3/uL (0.0-0.7); Absolute Monocyte Count 0.75 10^3/uL (0.1-0.8); Absolute Neutrophil Count 8.37 10^3/uL (1.2-6.7); Basophils % 0.2 %; HCT 41.5 % (36.0-46.0); Immature Grans % 0.8 %; Lymphocytes % 26.6 %; MCH 28.3 pg (27.0-33.0); MCHC 33.7 % (32.0-36.0); MCV 84 fL (80-95); MPV 9.2 fL (8.0-11.0); Monocytes % 5.9 %; Neutrophils % 65.5 %; Platelet Count 398 10^3/uL (130-400); RBC 4.95 10^6/uL (3.93-5.22); RDW 13.3 % (11.7-14.6); WBC 12.78 10^3/uL (4.4-10.8)
[2024-08-05 16:04] LABS: ALT 34 U/L (14-59); AST 15 U/L (15-37); Albumin 3.9 g/dL (3.4-5.0); Alkaline Phosphatase 101 U/L (46-116); Anion Gap 8.8 mmol/L (3-11); BUN 7 mg/dL (7-18); Bilirubin, Total 0.35 mg/dL (0.2-1.0); CO2 28.2 mmol/L (21.0-32.0); CREATININE 0.8 mg/dL (0.55-1.02); Calcium 9.7 mg/dL (8.5-10.1); Calculated LDL 144 mg/dL (<100); Chloride 103 mmol/L (98-107); Cholesterol 214 mg/dL (<200); Estimated GFR 99.09 (mL/min/1.73m2); Glucose 89 mg/dL (74-106); HDL Cholesterol 39 mg/dL (40-60); Potassium 4.5 mmol/L (3.5-5.1); Sodium 140 mmol/L (136-145); Total Protein 7.9 g/dL (6.4-8.2); Triglyceride 158 mg/dL (<150)
[2024-08-05 16:15] LABS: Hemoglobin A1C 5.6 % (<5.7)
== END 2024-08-05 12:40 | disposition home or self-care (01) ==
LOC: NCHCN 12:39
PROVIDERS: PCP Physician Assistant Medical; Visit Provider Physician Assistant Medical
DX: E66.9 Obesity, unspecified (principal); R73.03 Prediabetes; K76.0 Fatty (change of) liver, not elsewhere classified
CPT/HCPCS: 80053; 80061; 83036; 85025

== ENCOUNTER 2025-01-04 19:48 | Emergency (ER) | payer BC, SELFPAY ==
[2025-01-04 19:49] VITALS: BP 127/74; PULSE 87; RESP 16; TEMP 36.9; O2SAT 98
--- NOTE | 2025-01-04 20:10 | W.ED.GENAD ---
Discharge Plan Disposition Patient Disposition: Home Condition: Stable Discharge Details Clinical Impression: Foot laceration Primary Care Provider: Elizabeth Anguiano ED Provider: Kelle Silver Home Meds and New Rx's Prescriptions: No Action Mirena 1 EACH intrauterine device 1 ea Intrauterine DIRECTED Patient Comments: 10/13/15 Pt states placed 08/2015. PG acetaminophen [Mapap Extra Strength] 500 MG tablet 500 mg PO Q6H PRN PRNQty: 30 1RF lisinopril 20 mg tablet 20 mg PO DAILY Patient Comments: TAKE ONE TABLET BY MOUTH DAILY Ozempic 1 mg/dose (4 mg/3 mL) pen injector 1 mg subcut QWEEK loratadine [Claritin] 10 mg Tablet 10 mg PO DAILY PRN Discharge Instructions Instructions: Taking care of cuts, scrapes, and puncture wounds Additional Instructions: Keep wound clean and dry. can take a shower, but do not soak the foot like in a bath or other water Wash with soap and water Steri-Strips will keep wound closed. These will come off on their own, do not pick them off. Do not apply any ointment on top of the Steri-Strips Stand Alone Forms: Work Release HPI General Date/Time Provider Initiated Documentation: 01/04/25 20:08. Limitations to Documentation: no limitations. Information obtained by: patient. HPI Narrative: 34-year-old female without significant past medical history presents for evaluation of wound to her left foot. She reports that she was walking barefoot in her garage when she caught her foot on a broken donald jar. She reports that she had difficulty getting it to stop bleeding but her neighbor who is a solder cream maker applied a dressing. Tetanus is not up-to-date Related Data Home Medications ?Medication ?Instructions ?Recorded ?Confirmed levonorgestrel (Mirena) 1 ea intrauterine DIRECTED 09/13/15 01/04/25 acetaminophen 500 mg tablet (Mapap 500 mg PO Q6H PRN PRN #30 tabs 10/14/15 01/04/25 Extra Strength) loratadine 10 mg tablet (Claritin) 10 mg PO DAILY PRN 11/15/20 01/04/25 lisinopril 20 mg tablet 20 mg PO DAILY 04/09/24 01/04/25 semaglutide 1 mg/dose (4 mg/3 mL) 1 mg subcut QWEEK 04/09/24 01/04/25 subcutaneous pen injector (Ozempic) Previous Rx's ?Medication ?Instructions ?Recorded acetaminophen 500 mg tablet (Mapap 500 mg PO Q6H PRN PRN #30 tabs 10/14/15 Extra Strength) Allergies Allergy/AdvReac Type Severity Reaction Status Date / Time Sulfa (Sulfonamide Allergy Severe HIVES, Unverified 01/04/25 19:53 Antibiotics) SWELLING, ITCHING amoxicillin Allergy Unknown ? WAS TOLD Unverified 01/04/25 19:53 @ PCP'S OFFICE General Stated Complaint: Laceration MERE: 4 Exam Narrative Exam Narrative: Review of Systems: All systems reviewed & are unremarkable except as noted in HPI and below Well-developed, no acute distress NCAT Dorsal surface of left foot just proximal to the toes there is a 1 cm laceration, no active bleeding, no foreign body Course Vital Signs Vital signs: Vital Signs Temperature 36.9 C 01/04/25 19:49 Pulse 87 01/04/25 19:49 Respiratory Rate 16 01/04/25 19:49 Blood Pressure 127/74 01/04/25 19:49 Pulse Oximetry 98 01/04/25 19:49 Temperature 36.9 C 01/04/25 19:49 Pulse 87 01/04/25 19:49 Respiratory Rate 16 01/04/25 19:49 Blood Pressure 127/74 01/04/25 19:49 Pulse Oximetry 98 01/04/25 19:49 Pain Level 4 01/04/25 19:49 Medical Decision Making Emergent evaluation of laceration. Patient was concerned that the wound did not stop bleeding at home. At this time there is no active bleeding. Her tetanus shot is not up-to-date, so this was updated in the emergency department. Wound was cleaned, examined in a bloodless field, there is no foreign body. Low suspicion for fracture. No indication for x-ray imaging. Wound approximated with Steri-Strips, wound care instructions provided to the patient. Return precautions advised PFSH All Active Problems Foot laceration (Acute) Left hamstring muscle strain (Acute 04/09/24) Allergic reaction (Acute) Hx of cholecystectomy (Chronic) Medical History Elevated blood pressure Iron deficiency anemia Plantar fasciitis Surgical History H/O wisdom tooth extraction Social History Smoking/Tobacco Use Status: Never Smoking risk assessment performed?: Yes Alcohol Intake: current Alcohol Intake frequency: a few times a month Drug use: Never Substance use type: does not use Do you feel safe at home: Yes Do you feel safe in your relationship?: Yes
[2025-01-04] MEDS: Diph,Pertuss(Acell),Tet Vac/Pf 0.5 ML SYR IM (20:15)
== END 2025-01-04 20:29 | disposition home or self-care (01) ==
LOC: ER 20:16
PROVIDERS: Emergency Provider Emergency Medicine; PCP Physician Assistant Medical
DX: S91.312A Laceration without foreign body, left foot, initial encounter (principal); W26.8XXA Contact with other sharp object(s), not elsewhere classified, initial encounter; Z23 Encounter for immunization
CPT/HCPCS: 99283; 99284; 90471; 90715